=== PATIENT | female | born 1975 | race Hispanic/Latino ===

== ENCOUNTER 2018-06-28 13:49 | Emergency (ER) | payer OTHER ==
[~2018-06-28] VITALS: Ht 158.8 cm; Wt 52.2 kg
--- NOTE | 2018-06-28 15:17 | Diagnostic Imaging Report ---
Radiographs of the left foot- 3 views HISTORY: Pain COMPARISON: None available. FINDINGS: Bones: No acute displaced fracture. Osseous alignment is within normal limits. There is a plantar calcaneal spur. Joints: Scattered degenerative change. No osseous erosion. Soft tissues: The soft tissues appear unremarkable. IMPRESSION: No acute osseous abnormality. Signed by: Dr. Arielle Rdz MD on 06/28/2018 3:14 PM
== END 2018-06-28 15:40 | disposition home or self-care (01) ==
LOC: ER 13:49
DX: S90.122A Contusion of left lesser toe(s) without damage to nail, initial encounter (principal); W22.8XXA Striking against or struck by other objects, initial encounter; Y92.008 Other place in unspecified non-institutional (private) residence as the place of occurrence of the external cause
CPT/HCPCS: 99282